=== PATIENT | male | born 1985 | race Two or more races ===

== ENCOUNTER → 2022-03-23 13:59 | Outpatient (BNVA) | payer OTHER, SELFPAY | PROVIDERS: PCP Physician Assistant Medical; Visit Provider Nurse Practitioner Family | DX: G43.709 Chronic migraine without aura, not intractable, without status migrainosus (principal); M54.2 Cervicalgia; Z86.73 Personal history of transient ischemic attack (TIA), and cerebral infarction without residual deficits; Z79.82 Long term (current) use of aspirin; Z79.899 Other long term (current) drug therapy | CPT/HCPCS: 99202 ==

== ENCOUNTER → 2022-09-07 14:29 | Outpatient (BNVA) | payer OTHER, SELFPAY | PROVIDERS: PCP Physician Assistant Medical; Visit Provider Nurse Practitioner Family | DX: G43.709 Chronic migraine without aura, not intractable, without status migrainosus (principal); G51.39 Clonic hemifacial spasm, unspecified; I63.9 Cerebral infarction, unspecified | CPT/HCPCS: 99212 ==

== ENCOUNTER → 2022-11-16 15:38 | Outpatient (BNVA) | payer OTHER, SELFPAY | PROVIDERS: PCP Physician Assistant Medical; Visit Provider Nurse Practitioner Family | DX: I63.9 Cerebral infarction, unspecified (principal); G54.9 Nerve root and plexus disorder, unspecified; G47.33 Obstructive sleep apnea (adult) (pediatric); G47.19 Other hypersomnia | CPT/HCPCS: 99212 ==

== ENCOUNTER → 2022-12-29 13:26 | Outpatient (REF) | payer OTHER, SELFPAY | LOC: HO.SL 13:26 | PROVIDERS: Visit Provider Nurse Practitioner Family | DX: G47.33 Obstructive sleep apnea (adult) (pediatric) (principal); G47.19 Other hypersomnia; R06.83 Snoring; Z86.73 Personal history of transient ischemic attack (TIA), and cerebral infarction without residual deficits | CPT/HCPCS: 95806 ==

== ENCOUNTER 2023-01-12 13:04 | Outpatient (REF) | payer OTHER, SELFPAY ==
--- NOTE | 2023-01-12 13:07 | EEG_ITS ---
FINDINGS: The waking background activity consists of moderate voltage 9 to 10 Hz posterior alpha frequency intermixed anteriorly with low voltage fast frequencies. Drowsiness is catheterized by diffuse theta slowing. No sleep stages are identified. No focal, lateralizing, or paroxysmal discharges are seen. Photic stimulation is without activation. Hyperventilation was omitted. IMPRESSION: This awake and drowsy electroencephalogram is within normal limits. MD THOR Cantu/ANDREY / [id number]
== END 2023-01-12 13:05 | disposition home or self-care (01) ==
LOC: HO.NEURO 13:04
PROVIDERS: PCP Physician Assistant Medical; Visit Provider Nurse Practitioner Family
DX: G51.39 Clonic hemifacial spasm, unspecified (principal); I63.9 Cerebral infarction, unspecified; G45.9 Transient cerebral ischemic attack, unspecified
CPT/HCPCS: 95816

== ENCOUNTER → 2023-01-24 10:53 | Outpatient (BNVA) | payer OTHER, SELFPAY | PROVIDERS: PCP Physician Assistant Medical; Visit Provider Nurse Practitioner Family | DX: G43.709 Chronic migraine without aura, not intractable, without status migrainosus (principal); G47.33 Obstructive sleep apnea (adult) (pediatric); Z86.73 Personal history of transient ischemic attack (TIA), and cerebral infarction without residual deficits | CPT/HCPCS: 99212 ==